=== PATIENT | female | born 1960 | race Caucasian/White ===

== ENCOUNTER 2020-11-19 09:49 | Outpatient (REF) | payer OTHER, SELFPAY ==
--- NOTE | ~2020-11-19 | MM_ITS ---
EXAMINATION: MM SCREENING DIGITAL BREAST TOMOSYNTHESIS, BILATERAL CLINICAL INFORMATION: Screening. Asymptomatic. The lifetime risk of breast cancer based on the Tyrer-Cuzick Model is 10%. COMPARISON: Mammography: 11/14/2019, 09/07/2018, 08/17/2017 TECHNIQUE: Digital breast tomosynthesis is performed in both the craniocaudal and mediolateral oblique views along with computer-aided detection (CAD). Synthesized 2D images are generated from the tomosynthesis. FINDINGS: The breasts are heterogeneously dense, which may obscure small masses (ACR BI-RADS breast composition Category c). There are no significant masses, abnormal calcifications, or other abnormalities. Parenchymal pattern is similar to prior studies. No developing density. Calcifications mid upper outer left breast are decreased. There are some other benign coarse calcifications in each breast. Skin contours are smooth. MM/MM tomosynthesis screening BI IMPRESSION: No significant changes from prior studies. ASSESSMENT: BI-RADS 2: Benign RECOMMENDATION: Routine annual mammography screening. This patient's information was entered into a reminder system with a target due date for their next mammogram.
== END 2020-11-19 09:50 | disposition home or self-care (01) ==
LOC: HO.MAMMO 09:49
PROVIDERS: PCP Pediatrics; Visit Provider Pediatrics
DX: Z12.31 Encounter for screening mammogram for malignant neoplasm of breast (principal)
CPT/HCPCS: 77063; 77067

== ENCOUNTER 2021-11-21 08:00 | Outpatient (REF) | payer OTHER, SELFPAY ==
--- NOTE | ~2021-11-21 | MM_ITS ---
EXAMINATION: MM SCREENING DIGITAL BREAST TOMOSYNTHESIS, BILATERAL CLINICAL INFORMATION: Screening. Asymptomatic. The lifetime risk of breast cancer based on the Tyrer-Cuzick Model is 14%. COMPARISON: Mammography: 11/19/2020, 11/14/2019, 09/07/2018 TECHNIQUE: Digital breast tomosynthesis is performed in both the craniocaudal and mediolateral oblique views along with computer-aided detection (CAD). Synthesized 2D images are generated from the tomosynthesis. FINDINGS: The breasts are heterogeneously dense, which may obscure small masses (ACR BI-RADS breast composition Category c). There are no significant masses, abnormal calcifications, or other abnormalities. Breast tissue composition borders on average fibroglandular. Parenchymal pattern is similar to prior studies with no developing density or architectural abnormality. The axilla are unremarkable. No significant changes. MM/MM tomosynthesis screening BI IMPRESSION: No mammographic evidence of malignancy. ASSESSMENT: BI-RADS 1: Negative RECOMMENDATION: Routine annual mammography screening. This patient's information was entered into a reminder system with a target due date for their next mammogram.
== END 2021-11-21 08:01 | disposition home or self-care (01) ==
LOC: HO.MAMMO 08:00
PROVIDERS: PCP Pediatrics; Visit Provider Pediatrics
DX: Z12.31 Encounter for screening mammogram for malignant neoplasm of breast (principal)
CPT/HCPCS: 77063; 77067

== ENCOUNTER 2022-12-04 07:57 | Outpatient (REF) | payer OTHER, SELFPAY | END 2022-12-04 07:58 | disposition home or self-care (01) | LOC: HO.MAMMO 07:57 | PROVIDERS: PCP Pediatrics; Visit Provider Student in an Organized Health Care Education/Training Program | DX: Z12.31 Encounter for screening mammogram for malignant neoplasm of breast (principal) | CPT/HCPCS: 77063; 77067 ==

== ENCOUNTER → 2022-12-04 08:15 | Outpatient (BNV) | payer OTHER, SELFPAY | PROVIDERS: PCP Pediatrics; Visit Provider Radiology Diagnostic Radiology | DX: Z12.31 Encounter for screening mammogram for malignant neoplasm of breast (principal) | CPT/HCPCS: 77063; 77067 ==

== ENCOUNTER 2023-12-19 14:08 | Outpatient (REF) | payer OTHER, SELFPAY ==
--- NOTE | ~2023-12-19 | MM_ITS ---
EXAMINATION: MM SCREENING DIGITAL BREAST TOMOSYNTHESIS, BILATERAL CLINICAL INFORMATION: Screening. Asymptomatic. COMPARISON: Mammography: Comparison is made with available priors TECHNIQUE: Digital breast mammography with tomosynthesis is performed in both the craniocaudal and mediolateral oblique views along with computer-aided detection (CAD). FINDINGS: The breasts are heterogeneously dense, which may obscure small masses (ACR BI-RADS breast composition Category c). There are no significant masses, abnormal calcifications, or other abnormalities. MM/MM tomosynthesis screening BI IMPRESSION: No mammographic evidence of malignancy. ASSESSMENT: BI-RADS BI-RADS 1 - Negative RECOMMENDATION: Routine annual mammography screening. 1 year F/U This examination should not preclude the clinical evaluation of a suspicious palpable abnormality. This patient's information was entered into a reminder system with a target due date for their next mammogram. Electronically signed by: Shanel Carballo DO 01/06/2024 09:47 AM EDT
== END 2023-12-19 14:09 | disposition home or self-care (01) ==
LOC: HO.MAMMO 14:08
PROVIDERS: PCP Pediatrics; Visit Provider Pediatrics
DX: Z12.31 Encounter for screening mammogram for malignant neoplasm of breast (principal)
CPT/HCPCS: 77063; 77067

== ENCOUNTER → 2023-12-19 14:30 | Outpatient (BNV) | payer OTHER, SELFPAY | PROVIDERS: PCP Pediatrics; Visit Provider Internal Medicine | DX: Z12.31 Encounter for screening mammogram for malignant neoplasm of breast (principal) | CPT/HCPCS: 77063; 77067 ==

== ENCOUNTER 2024-12-24 14:54 | Outpatient (REF) | payer OTHER, SELFPAY ==
--- OUTSIDE RECORDS SUMMARY | 2024-12-24 18:04 | XMS_ITS | Encounter Summary ---
Author Organization [facility] Address [address] [place] [phone] Phone Care Team Providers Care Abrasive Band Winder Name Role Phone Andres Ramos MD Primary Care Provider Reason for Visit * Reason Onset Date Comments Labs 12/16/2024 Encounter Details Date Type Department Care Team (Late st Contact Info) Description 12/16/2024 Telephone [employer] [facility] Rheumatology [address] [place], [place] [id number] Unknown, Unknown, MD Labs Social History Tobacco Use Types Packs/Day Years Used Date Smoking Tobacco: Never Smokeless Tobacco: Never Alcohol Use Standard Drinks/Week Comments Not Currently 0 (1 standard drink = 0.6 oz pur e alcohol) Education Answer Date Recorded Are you interested in more education? Not on radha e 08/11/2022 Are you concerned about learning? Not on file 08/11/2022 No 08/11/2022 No 08/11/2022 Digital Access Answer Date Recorded No 09/09/2022 No 09/09/2022 Reliable internet access at home? Not on file 09/09/2022 Device with a working camera? Not on file Comments Unknown Sex and Gender Information Value Date Recorded Sex Assigned at Female 08/28/2018 8:28 PM EDT Legal Sex Female 8:22 PM EDT Gender Identity Female 08/28/2018 8:28 PM EDT Sexual Orientation Not on file documented as of this encounter Progress Notes * Chary Moss - 12/24/2024 11:01 AM EDT Called Pt and LVMTCB relaying above message. * Silver Arias - 12/16/2024 1:54 PM EDT Pt lvm regarding labs. Went to [facility], not sure where. No labs were there. Called and lvm that ifeunice wanted to go to labs other than [facility], we would have to fax them. Advised her to call back with afax number if she want to go to outside lab, and they are not fasting. documented in this encounter Plan of Treatment Upcoming Encounters Date Type Department Care Team (Late st Contact Info) Description 04/29/2025 3:00 PM EST Office Visit [facility] Rheumatology [address] [place] [address] Nahomi Moreira MD [address] [place] [address], [address] [place] [address] [email or web address] documented as of this encounter Visit Diagnoses Not on filedocumented in this encounter Care Teams Abrasive Band Winder Relationship Specialty Start Date End Date Andres Ramos MD [address] [place] [id number] PCP - General Internal Medicine 06/14/22 documented as of this encounter Additional Source Comments The information contained in this document represents components of the legal health record. It is not the complete legal health record.[facility]
--- OUTSIDE RECORDS SUMMARY | 2024-12-24 18:05 | XMS_ITS | Encounter Summary ---
Author Organization [facility] Address [address] [place] [address] Phone Care Team Providers Care Public Health Sanitarian Name Role Phone Andres Ramos MD Primary Care Provider Encounter Details Date Type Department Care Team (Latest Contact Info) Description 12/23/2024 Orders Only [facility] Rheumatology [address] [place] [address] [place] [address] [email or web address] Sjogren's syndrome with keratoconjunctivitis sicca; Raynaud's disease without gangrene; 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 (NSAID); Positive BRANDI (antinuclear antibody) Social History Tobacco Use Types Packs/Day Years [...] on file documented as of this encounter Plan of Treatment Upcoming Encounters Date Type Department Care Team (Late st Contact Info) Description 04/29/2025 3:00 PM EST Office Visit [facility] Rheumatology [address] [place] [address] Nahomi Moreira MD [address] [facility], [address] [place] [address] [email or web address] documented as of this encounter Procedures Procedure Name Priority Date/Time Associated Diagnosis Comments TOTAL PROTEIN CREATININE RATIO, RANDOM URINE Routine 12/18/2024 1:54 PM EDT Sjogren's syndrome with keratoconjunctivitis sicca Raynaud's disease without gangrene CBC AND DIFFERENTIAL Routine 12/18/2024 1:53 PM EDT Sjogren's syndrome with keratoconjunctivitis sicca prison current use of non-steroidal anti-inflammatories (NSAID) Positive BRANDI (antinuclear antibody) C-REACTIVE PROTEIN Routine 12/18/2024 1: 53 PM EDT Sjogren's syndrome with keratoconjunctivitis sicca prison current use of non-steroidal anti-inflammatories (NSAID) Positive BRANDI (antinuclear antibody) SEDIMENTATION RATE (ESR) Routine 12/18/2024 1:53 PM EDT Sjogren's syndrome with keratoconjunctivitis sicca 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 (NSAID) Positive BRANDI (antinuclear antibody) COMPREHENSIVE METABOLIC PANEL Routine 12/18/2024 1:53 PM EDT Sjogren's syndrome with keratoconjunctivitis sicca 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 (NSAID) Positive BRANDI (antinuclear antibody) SS-A/SS-B ANTIBODIES Routine 12/18/2024 1:52 PM EDT Sjogren's syndrome with keratoconjunctivitis sicca Positive BRANDI (antinuclear antibody) documented in this encounter Results * Total protein creatinine ratio, random urine (12/18/2024 1:54 PM EDT) Urine (Urine) us Nahomi Moreira MD URINE ORDERABLES Final R esult Performing Organization Address [facility] de Phone Number EXTERNAL NON-INTERFACED REF LAB * CBC and differential (12/18/2024 1:53 PM EDT) Blood us Nahomi Moreira MD LAB BLOOD ORDERABLES Fin al Result Performing Organization Address [facility] de Phone Number EXTERNAL NON-INTERFACED REF LAB * C-Reactive Protein (12/18/2024 1:53 PM EDT) Blood Nahomi Moreira MD LAB BLOOD ORDERABLES Fin al Result Performing Organization Address [facility] de Phone Number EXTERNAL NON-INTERFACED REF LAB * (ABNORMAL) Sedimentation rate (ESR) (12/18/2024 1:53 PM EDT) Blood Nahomi Moreira MD LAB BLOOD ORDERABLES Fin al Result Performing Organization Address [facility] de Phone Number EXTERNAL NON-INTERFACED REF LAB * (ABNORMAL) Comprehensive metabolic panel (12/18/2024 1:53 PM EDT) Blood us Nahomi Moreira MD LAB BLOOD ORDERABLES Fin al Result Performing Organization Address [facility] de Phone Number EXTERNAL NON-INTERFACED REF LAB * (ABNORMAL) SS-A/SS-B antibodies (12/18/2024 1:52 PM EDT) Blood us Nahomi Moreira MD LAB BLOOD ORDERABLES Fin al Result EXTERNAL NON-INTERFACED REF LAB documented in this encounter Visit Diagnoses Diagnosis Sjogren's syndrome with keratoconjunctivitis sicca Raynaud's disease without gangrene 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 It is not the complete legal health record.[facility]
--- OUTSIDE RECORDS SUMMARY | 2024-12-24 18:05 | XMS_ITS | Encounter Summary ---
Author Organization [facility] Address [address] [place] [address] Phone Care Team Providers Care Chief Innovation Officer Name Role Phone Andres Ramos MD Primary Care Provider Encounter Details Date Type Department Care Team (Late st Contact Info) Description 01/29/2024 Procedure Pass [address] [place] [address] Social History Tobacco Use Types Packs/Day Years [...] Description 04/29/2025 3:00 PM EST Office Visit [facility] Rheumatology [address] [place] [address] Nahomi Moreira MD [address] [place] [address], [address] [place] [address] [email or web address] documented as of this encounter Visit Diagnoses Not on filedocumented in this encounter Care Teams Chief Innovation Officer Relationship Specialty Start Date End Date Andres Ramos MD [address] [place] [id number] PCP - General Internal Medicine 06/14/22 documented as of this encounter Additional Source Comments The information contained in this document represents components of the legal health record. It is not the complete legal health record.[facility]
--- OUTSIDE RECORDS SUMMARY | 2024-12-24 18:05 | XMS_ITS | Encounter Summary ---
Author Organization [facility] Address [address] [place] [address] [place] [address] Phone Care Team Providers Care Director Audience Marketing Name Role Phone Andres Ramos MD Primary Care Provider Encounter Details Date Type Department Care Team (Latest Contact Info) Description 01/29/2024 Transcribe Orders [facility] [address] [place] [address] Missael Wong MD [address] [facility] 2 [place] [address] [email or web address] Abnormal findings on radiological examination of gastrointestinal tract (Primary Dx) Social History Tobacco Use Types Packs/Day Years [...] Description 04/29/2025 3:00 PM EST Office Visit [facility] Rheumatology [address] [place] [address] Nahomi Moreira MD [address] [facility], [address] [place] [address] [email or web address] documented as of this encounter Results * (ABNORMAL) Alkaline phosphatase (01/29/2024 1:26 PM EDT) ALKALINE PHOSPHATASE 148(H) 39 - 117 U/L [facility] Blood 01/29/2024 1:26 PM EDT 01/29/2024 1:30 PM EDT us Missael Wong MD LAB BLOOD ORDERABLES Final Res ult Performing Organization Address [facility]/ZIP Co de Phone Number [address] [address] * GGT (Gamma glutamyl transferase) (01/29/2024 1:26 PM EDT) GGT 10 7 - 33 U/L [facility] Blood 01/29/2024 1:26 PM EDT 01/29/2024 1:30 PM EDT us Missael Wong MD LAB BLOOD ORDERABLES Final Res ult Performing Organization Address [facility] Co de Phone Number [address] [address] * Smooth Muscle Antibody (01/29/2024 1:26 PM EDT) SMOOTH MUSCLE AB POSITIVE AT 1:40 [facility] Comment: Performing Pathologist, Summer Salter M.D., Ph.D. [phone] Normal: Negative at 1:20 Blood 01/29/2024 1:26 PM EDT 01/29/2024 1:31 PM EDT Missael Wong MD LAB BLOOD ORDERABLES Final Res ult Performing Organization Address [facility] Co de Phone Number [address] [address] * (ABNORMAL) Antinuclear antibody (BRANDI) (01/29/2024 1:26 PM EDT) BRANDI SCREEN ON HEP 2 Positive(A ) Negative [facility] Comment:An BRANDI Titer has bee n reflexed. The results will follow. Blood 01/29/2024 1:26 PM EDT 01/29/2024 1:30 PM EDT Missael Wong MD LAB BLOOD ORDERABLES Final Res ult Performing Organization Address [facility] Co de Phone Number [address] [address] * Anti-Mitochondrial Antibody (AMA) (01/29/2024 1:26 PM EDT) MITOCHONDRIAL AB NEGATIVE AT 1:20 [facility] Comment: Performing Pathologist, Summer Salter M.D., Ph.D. [phone] Normal: Negative at 1:20 Blood 01/29/2024 1:26 PM EDT 01/29/2024 1:31 PM EDT Result [facility] Missael Wong MD LAB BLOOD ORDERABLES Final Res ult Performing Organization Address [facility] Co de Phone Number [address] [address] documented in this encounter Visit Diagnoses Diagnosis Abnormal findings on radiological examination of gastrointestinal tract- Primary documented in this encounter Care Teams Director Audience Marketing Relationship Specialty Start Date End Date Andres Ramos MD [address] [place] [phone] PCP - General Internal Medicine 06/14/22 documented as of this encounter Additional Source Comments The information contained in this document represents components of the legal health record. It is not the complete legal health record.[facility]
--- OUTSIDE RECORDS SUMMARY | 2024-12-24 18:05 | XMS_ITS | Clinical Summary ---
Author Organization Located Within [facility] Address [address] [place] [phone] Phone Care Team Providers Care Lathe Operator Name Role Phone Andres Ramos MD Primary Care Provider Allergies Active Allergy Reactions Criticality Noted Date Comments Nitrofurantoin Vertigo,Other (See Comments) High 10/27/2024 nitrofurantoin Sulfa (Sulfonamide Antibiotics) 08/28/2018 Medications cholecalciferol , vitamin D3, 25 mcg (1,000 unit) capsule Take 1,000 Units by mouth daily. Active fexofenadine (MICHAEL) 180 MG tablet as needed. Active nystatin-triamc inolone ointment As needed Active zinc sulfate 50 mg zinc (220 mg) Tab Take 220 mg by mouth daily. As needed Active meloxicam (MOBIC) 15 MG tabletIndicatio ns:Acute pain of right knee Take 1 tab once daily with food as needed for severe joint pain; do not combine with ibuprofen or naproxen 30 tablet Active ascorbic acid, vitamin C, (VITAMIN C) 500 MG tablet Take 500 mg by mouth daily. 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 Remember to take it always with food. Favor topical over oral preparations. Positive BRANDI (antinuclear antibody) 10/27/2024 Assessment & Plan (10/27/2024 5:34 PM EDT): Positive BRANDI in itself does not make any diagnosis & her multiple subtypes positivity makes it difficult to diagnose 1 particular disease entity therefore longitudinal monitoring and periodic checkup may help in distinguishing appropriate diagnosis Raynaud's disease without gangrene 05/07/2024 Assessment & Plan (10/27/2024 4:38 PM EDT): Keep warm, dress in layers. Optimize stress management strategies. Avoid vasoconstrictors in OTC products for cold/flu and sinus. Assessment & Plan (05/18/2024 9:42 PM EST): Keep warm, dress in layers. Optimize stress management strategies. Avoid vasoconstrictors in OTC products for cold/flu and sinus. Hair thinning 05/07/2024 Assessment & Plan (05/18/2024 9:48 PM EST): Optimize stress management, sleep hygiene and continue well-balanced nutritionally diet rich in fresh fruits and vegetables. Avoid hair dyes and harsh hair products. Pain in both hands 05/07/2024 Assessment & Plan (05/18/2024 9:43 PM EST): Joint protection, energy conservation. Gentle, regular exercise routine. Avoid falls, injuries, overuse. She may benefit from topical cream such as Arnica, Biofreeze, Aspercreme versus medicated patches such as salonpas, icy hot patch 2-3 times daily and if necessary at bedtime x 3 weeks. May use Tylenol 500-650 mg up to 3 times daily as needed Undifferentiated connective tissue disease 05/07 Assessment & Plan (10/27/2024 5:31 PM EDT): She has multiple positive antibodies including SCL 70, centromere, SSA, SSB in addition to low positive rheumatoid factor and smooth muscle antibody that is not consistent with any specific systemic rheumatic disease at this time except for Sjogren syndrome though may return in the future at some point in time. Due to low positive rheumatoid factor and thickening over second fingers MCP and PIP joints I took the liberty of hand x-rays to make sure that she does not have any signs of inflammatory arthritis. She reported couple of instances of falls and questionable choking therefore I have asked her to keep a detailed diary of her worrisome symptoms with accompanying/modifying factors. Assessment & Plan (05/18/2024 9:41 PM EST): She has multiple positive antibodies including SCL 70, centromere, SSA, SSB in addition to low positive rheumatoid factor and smooth muscle antibody that is not consistent with any specific systemic rheumatic disease at this time except for Sjogren syndrome though may return in the future at some point in time. Due to low positive rheumatoid factor and thickening over second fingers MCP and PIP joints I took the liberty of hand x-rays to make sure that she does not have any signs of inflammatory arthritis. She reported couple of instances of falls and questionable choking therefore I have asked her to keep a detailed diary of her worrisome symptoms with accompanying/modifying factors. Class 1 obesity due to exces s calories without serious comorbidity with body mass index (BMI) of 31.0 to 31.9 in adult 05/07/2024 Assessment & Plan (10/27/2024 5:32 PM EDT): Congratulations on losing 2 pounds from 191 on 05/07/2024 down to 189 today and keep it off. Continue diligent portion control. Limit concentrated sugars, saturated fats and calories in the diet. Keep well-hydrated. If unable to achieve expected goal consider formal dietary/nutritional support. Assessment & Plan (05/18/2024 9:44 PM EST): Portion control. Limit concentrated sugars, saturated fats and calories in the diet. Keep well-hydrated. If unable to achieve expected goal consider formal dietary/nutritional support. Sjogren's syndrome with keratoconjunctivitis sic ca 06/25/2023 Assessment & Plan (10/27/2024 4:09 PM EDT): Keep well-hydrated. Avoid spicy and acidic foods. Diligent eyes and mouth hygiene. Regular ocular and dental checkups. Assessment & Plan (05/18/2024 9:41 PM EST): Keep well-hydrated. Avoid spicy and acidic foods. Diligent eyes and mouth hygiene. Regular ocular and dental checkups. Assessment & Plan (06/25/2023 10:24 PM EDT): Sicca syndrome with continued dry mouth. She can try [id number]-yio-[id number] products like Biotene and XyliMelts to improve the oral moisture. She gets regular dental exams and has no increase in cavities. Primary osteoarthritis of both first carpometaca rpal joints 06/25/2023 Assessment & Plan (05/18/2024 9:46 PM EST): Continue joint protection, energy conservation techniques, splinting and assistive devices as needed. Topical Voltaren versus Arnica in favor of oral NSAIDs. Gentle, regular exercise routine. May benefit from formal OT. If symptoms progressive despite above measures may need to consider local steroid injection. Assessment & Plan (06/25/2023 10:25 PM EDT): Osteoarthritis in multiple joints most bothersome at the base of both thumbs in the basal joint. Suggested she use diclofenac gel as needed and limit use of Aleve. Gave her an article on arthritis of the basal joint which outlines management of this type of arthritis. 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); Positive BRANDI (antinuclear antibody) 12/16/2024 Telephone [facility] Rheumatology [address] [place] [address] Unknown, Unknown, Labs 11/11/2024 Telephone [facility] Rheumatology [address] [place] [address] [place] [address] Nahomi Moreira MD Labs 10/27/2024 4:00 PM EDT Office Visit [facility] Rheumatology [address] [place] [address] Nahomi Moreira MD Sjogren's syndrome with keratoconjunctivitis sicca (Primary Dx); Raynaud's disease without gangrene; custodial current use of non-steroidal anti-inflammatories (NSAID); Positive BRANDI (antinuclear antibody); Undifferentiated connective tissue disease; Class 1 obesity due to excess calories without serious comorbidity with body mass index (BMI) of 31.0 to 31.9 in adult 10/22/2024 Orders Only [facility] Rheumatology [address] [place] [address] Provider, MD Jade from Last 3 Months Family History Medical History Relation Comments Parkinson's disease Brother Coronary artery disease Father Diabetes Father Emphysema Mother Relation Status Comments Brother Alive Father Mother Social History Tobacco Use Types Packs/Day Years Used Date Smoking Tobacco: Never Smokeless Tobacco: Never Tobacco Cessation:Counseling Given: Not Answered Alcohol Use Standard Drinks/Week Comments Not Currently [...] PM EDT Sexual Orientation Not on file Last Filed Vital Signs Vital Sign Reading Time Taken Comments Blood Pressure 112/72 10/27/2024 4:05 PM EDT Pulse 69 10/27/2024 4:05 PM EDT Temperature 37 C (98.6 F) 08/28/2018 8:27 PM EDT Respiratory Rate 14 08/28/2018 8:27 PM EDT Oxygen Saturation 96% 10/27/2024 4:05 PM EDT Inhaled Oxygen Concentration - - Weight 86 kg (189 lb 9.6 oz) 10/27/2024 4:05 PM EDT Height 165.1 cm (5' 5 ) 10/27/2024 4:05 PM EDT Body Mass Index 31.55 10/27/2024 4:05 PM EDT Plan of Treatment Upcoming Encounters Date Type Department Care Team (Late st Contact Info) Description 04/29/2025 3:00 PM EST Office Visit [facility] Rheumatology [address] [place] [address] Nahomi Moreira MD [address] [facility], [address] [place] [address] [email or web address] Health Maintenance Due Date Last Done Comments LIPID PANEL 1960 DEPRESSION SCREENING 1972 HEPATITIS C SCREENING 1978 HIV ONE-TIME SCREENING (18-65 YEARS) 1978 PAP SMEAR 1981 SCREENING FOR DIABETES 07/23/1995 COLOGUARD 2005 COLONOSCOPY 2005 COLORECTAL CANCER SCREENING 2005 FIT TEST 2005 FOBT 2005 SIGMOIDOSCOPY 2005 VIRTUAL COLONOSCOPY 2005 MAMMOGRAM 11/22/2023 11/21/2021 INFLUENZA VACCINE (#1) 2024 , 01/27/2023, 06/14/2022, Additional history exists Adult Td,Tdap Booster 09/16/2025 09/17/2015, 006 RSV VACCINE (1 - 1-dose 75+ series) 07/23/2035 ZOSTER VACCINES Completed 06/11/2020, 01/14, 01/31/2020 COVID-19 VACCINE Completed 01/22/2024, , 04/22/2022, Additional history exists PNEUMOCOCCAL VACCINES (50+ years) Completed 02/25/2024 SMOKING STATUS SCREENING (Once After 26 Yrs) Completed 10/27/2024 HEPATITIS A VACCINES Aged Out No long er eligible based on patient's age to complete this topic HIB VACCINES Aged Out No longer eligi ble based on patient's age to complete this topic MENINGOCOCCAL VACCINES (ACWY) Aged Out No longer eligible based on patient's age to complete this topic MENINGOCOCCAL VACCINES (B) Aged Out N o longer eligible based on patient's age to complete this topic Medical Devices Not on file Procedures Procedure Name Priority Date/Time Associated Diagnosis Comments TOTAL PROTEIN CREATININE RATIO, RANDOM URINE Routine 12/18/2024 1:54 PM EDT Sjogren's syndrome with keratoconjunctivitis sicca Raynaud's disease without gangrene CBC AND DIFFERENTIAL Routine 12/18/2024 1:53 PM EDT Sjogren's syndrome with keratoconjunctivitis sicca custodial current use of non-steroidal anti-inflammatories (NSAID) Positive BRANDI (antinuclear antibody) C-REACTIVE PROTEIN Routine 12/18/2024 1: 53 PM EDT Sjogren's syndrome with keratoconjunctivitis sicca custodial current use of non-steroidal anti-inflammatories (NSAID) Positive BRANDI (antinuclear antibody) SEDIMENTATION RATE (ESR) Routine 12/18/2024 1:53 PM EDT Sjogren's syndrome with 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) Positive BRANDI (antinuclear antibody) COMPREHENSIVE METABOLIC PANEL Routine 12/18/2024 1:53 PM EDT Sjogren's syndrome with 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) Positive BRANDI (antinuclear antibody) SS-A/SS-B ANTIBODIES Routine 12/18/2024 1:52 PM EDT Sjogren's syndrome with keratoconjunctivitis sicca Positive BRANDI (antinuclear antibody) OUTSIDE LAB Routine 10/18/2024 11:31 AM EDT from Last 3 Months Results * Total protein creatinine ratio, random urine (12/18/2024 1:54 PM EDT) Urine (Urine) us Nahomi PerezOtilio MD URINE ORDERABLES Final R esult Performing Organization Address [facility] de Phone Number EXTERNAL NON-INTERFACED REF LAB * CBC and differential (12/18/2024 1:53 PM EDT) Blood us Nahomi Moreira MD LAB BLOOD ORDERABLES Fin al Result Performing Organization Address [facility] de Phone Number EXTERNAL NON-INTERFACED REF LAB * C-Reactive Protein (12/18/2024 1:53 PM EDT) Blood us Nahomi Moreira MD LAB BLOOD ORDERABLES Fin al Result Performing Organization Address [facility] de Phone Number EXTERNAL NON-INTERFACED REF LAB * (ABNORMAL) Sedimentation rate (ESR) (12/18/2024 1:53 PM EDT) Blood Result Yudith Moreira MD LAB BLOOD ORDERABLES Fin al Result Performing Organization Address [facility] de Phone Number EXTERNAL NON-INTERFACED REF LAB * (ABNORMAL) Comprehensive metabolic panel (12/18/2024 1:53 PM EDT) Blood Result Yudith Moreira MD LAB BLOOD ORDERABLES Fin al Result Performing Organization Address [facility] de Phone Number EXTERNAL NON-INTERFACED REF LAB * (ABNORMAL) SS-A/SS-B antibodies (12/18/2024 1:52 PM EDT) Blood us Nahomi Moreira MD LAB BLOOD ORDERABLES Fin al Result Performing Organization Address [facility] de Phone Number EXTERNAL NON-INTERFACED REF LAB * Outside Lab (10/18/2024 11:31 AM EDT) us Historical Provider LAB BLOOD ORDERABLES Kamini simmons Result from Last 3 Months Insurance [employer] Care Teams Lathe Operator Relationship Specialty Start Date End Date Andres Ramos MD [address] [place] [address] PCP - General Internal Medicine 06/14/22 Additional Source Comments The information contained in this document represents components of the legal health record. It is not the complete legal health record.Located Within [facility]
--- OUTSIDE RECORDS SUMMARY | 2024-12-24 18:05 | XMS_ITS | Encounter Summary ---
Author Organization [facility] Address [address] [place] [address] Phone Care Team Providers Care Career Development Coordinator/Teacher Name Role Phone Andres Ramos MD Primary Care Provider Reason for Referral * MRI/CAT Scan - Closed Specialty Diagnoses / Procedures Referred By Contac t Referred To Contact Radiology Diagnoses Elevated alkaline phosphatase level Abnormal findings on diagnostic imaging of digestive system Mesenteric lymphadenopathy Procedures MRI Cholangiopancreatography (MRCP) CHG MRI, ABDOMEN, COMBO Missael Wong MD [address] [place] [address] Phone: tel: fax: [email or web address] Referral ID Status Reason Start Date Expiration Date Visits Re quested Visits Authorized [id number] Closed 01/29/2024 03/29/2024 1 1 Encounter Details Date Type Department Care Team (Latest Contact Info) Description 01/29/2024 Transcribe Orders Virtual Department [address] [place] [address] Missael Wong MD [address] [place] [phone] [email or web address] Elevated alkaline phosphatase level (Primary Dx); Abnormal findings on diagnostic imaging of digestive system; Mesenteric lymphadenopathy Social History Tobacco Use Types Packs/Day Years [...] Description 04/29/2025 3:00 PM EST Office Visit [facility] Rheumatology [address] [place] [address] Nahomi Moreira MD [address] [place] [address], [address] [place] [address] [email or web address] documented as of this encounter Results * MRI CHOLANGIOPANCREATOGRAPHY (MRCP) WITH AND WITHOUT CONTRAST (02/21/2024 10:42 AM EST) Anatomical Region Laterality Modality Pancreas, Biliary Magnetic Reson ance 02/22/2024 11:5 8 AM EST Impressions 02/22/2024 12:10 PM EST 1. No acute abnormality or inflammation in the abdomen. 2. No suspicious mass. 3. Exam assessment limited by absence of prior comparison report and history. Narrative 02/22/2024 12:10 PM EST MRI CHOLANGIOPANCREATOGRAPHY (MRCP) WITH AND WITHOUT CONTRAST Referring clinician's provided indication for this examination in Epic: Outside Radiology Order; elevated alk phos TECHNIQUE: Multiplanar MR imaging of the abdomen was performed using T1, T2, fat saturated, and diffusion weighted techniques. 2D and 3D MRCP sequences were performed. Dynamic multiphase imaging was also performed after administration of an intravenous gadolinium contrast agent. COMPARISON: CT ABDOMEN OUTSIDE (NO INTERPRETATION) FINDINGS: Exam assessment limited by absence of prior comparison report and history. Lower Chest: Normal. No effusions. Liver: Normal. No focal lesions. Biliary: Normal. No biliary ductal dilatation. Spleen: Normal. No splenomegaly or focal lesions. Pancreas: Normal. No masses or ductal dilatation. No peripancreatic inflammation. Adrenal Glands: Normal. No nodules. Kidneys/Ureters: Normal. No solid masses or hydronephrosis. Bowel: Normal. No dilatation or wall thickening. Peritoneum/Retroperitoneum: Normal. No masses or fluid. Lymph Nodes: Normal. No lymphadenopathy. Vessels: Normal. No abdominal aortic aneurysm. Bones/Soft Tissues: Normal. No focal marrow replacing lesions. Procedure Note Livier Pace MD - 02/22/2024 MRI CHOLANGIOPANCREATOGRAPHY (MRCP) WITH AND WITHOUT CONTRAST Referring clinician's provided indication for this examination in Epic:Outside Radiology Order; elevated alk phos TECHNIQUE: Multiplanar MR imaging of the abdomen was performed using T1,T2, fat saturated, and diffusion weighted techniques. 2D and 3D MRCPsequences were performed. Dynamic multiphase imaging was also performedafter administration of an intravenous gadolinium contrast agent. COMPARISON: CT ABDOMEN OUTSIDE (NO INTERPRETATION) FINDINGS: Exam assessment limited by absence of prior comparison report andhistory. Lower Chest: Normal. No effusions. Liver: Normal. No focal lesions. Biliary: Normal. No biliary ductal dilatation. Spleen: Normal. No splenomegaly or focal lesions. Pancreas: Normal. No masses or ductal dilatation. No peripancreaticinflammation. Adrenal Glands: Normal. No nodules. Kidneys/Ureters: Normal. No solid masses or hydronephrosis. Bowel: Normal. No dilatation or wall thickening. Peritoneum/Retroperitoneum: Normal. No masses or fluid. Lymph Nodes: Normal. No lymphadenopathy. Vessels: Normal. No abdominal aortic aneurysm. Bones/Soft Tissues: Normal. No focal marrow replacing lesions. IMPRESSION: 1. No acute abnormality or inflammation in the abdomen. 2. No suspicious mass. 3. Exam assessment limited by absence of prior comparison report andhistory. Missael Wong MD IMG MR ABDOMEN Final Result documented in this encounter Visit Diagnoses Diagnosis Elevated alkaline phosphatase level- Primary Abnormal findings on diagnostic imaging of digestive system Mesenteric lymphadenopathy Elevated alkaline phosphatase level Abnormal findings on diagnostic imaging of digestive system Mesenteric lymphadenopathy documented in this encounter Care Teams Career Development Coordinator/Teacher Relationship Specialty Start Date End Date Andres Ramos MD [address] [place] [address] PCP - General Internal Medicine 06/14/22 documented as of this encounter Additional Source Comments The information contained in this document represents components of the legal health record. It is not the complete legal health record.[facility]
--- OUTSIDE RECORDS SUMMARY | 2024-12-24 18:05 | XMS_ITS | Encounter Summary ---
Author Organization [facility] Address [address] [place] [phone] Phone Care Team Providers Care Quality Assurance Project Manager Name Role Phone Andres Ramos MD Primary Care Provider Encounter Details Date Type Department Care Team (Late st Contact Info) Description 06/14/2022 Procedure Pass [facility], [address] [address] Social History Tobacco Use Types Packs/Day Years Used Date Smoking Tobacco: Never Smokeless Tobacco: Never Alcohol Use Standard Drinks/Week Comments Not Currently 0 (1 standard drink = 0.6 oz pur e alcohol) Comments Unknown Sex and Gender Information Value Date Recorded Sex Assigned at Female 08/28/2018 8:28 PM EDT Legal Sex Female 8:22 PM EDT Gender Identity Female 08/28/2018 8:28 PM EDT Sexual Orientation Not on file documented as of this encounter Plan of Treatment Upcoming Encounters Date Type Department Care Team (Late Contact Info) Description 04/29/2025 3:00 PM EST Office Visit [facility] Rheumatology [address] [place] [address] Nahomi Moreira MD [address] [facility], [address] [place] [address] [email or web address] documented as of this encounter Visit Diagnoses Not on filedocumented in this encounter Care Teams Quality Assurance Project Manager Relationship Specialty Start Date End Date Andres Ramos MD [address] [place] [id number] PCP - General Internal Medicine 06/14/22 documented as of this encounter Additional Source Comments The information contained in this document represents components of the legal health record. It is not the complete legal health record.[facility]
== END 2024-12-24 14:55 | disposition home or self-care (01) ==
LOC: HO.MAMMO 14:54
PROVIDERS: PCP Pediatrics; Visit Provider Pediatrics
DX: Z12.31 Encounter for screening mammogram for malignant neoplasm of breast (principal)
CPT/HCPCS: 77063; 77067

== ENCOUNTER → 2024-12-24 15:15 | Outpatient (BNV) | payer OTHER, SELFPAY | PROVIDERS: PCP Pediatrics; Visit Provider Internal Medicine | DX: Z12.31 Encounter for screening mammogram for malignant neoplasm of breast (principal) | CPT/HCPCS: 77063; 77067 ==